=== PATIENT | male | born 1960 | race Caucasian/White ===

== ENCOUNTER 2016-09-08 22:02 | Emergency (ER) | payer BC, OTHER, SELFPAY ==
[~2016-09-08] VITALS: Ht 182.9 cm; Wt 92.8 kg
[2016-09-08 23:27] VITALS: BP 115/87
== END 2016-09-08 23:30 | disposition home or self-care (01) ==
LOC: ED 23:14
DX: F10.220 Alcohol dependence with intoxication, uncomplicated (principal); Z88.8 Allergy status to other drugs, medicaments and biological substances
CPT/HCPCS: 99284

== ENCOUNTER 2017-01-07 12:32 | Emergency (ER) | payer OTHER ==
[~2017-01-07] VITALS: Ht 182.9 cm; Wt 87.0 kg
[~2017-01-07 12:32] MED LIST: SILV25CR4 TP; SULF1TAB24 PO
[2017-01-07 13:10] VITALS: BP 130/85
== END 2017-01-07 13:13 | disposition home or self-care (01) ==
LOC: ED 13:07
DX: Z76.0 Encounter for issue of repeat prescription (principal)
CPT/HCPCS: 99283